=== PATIENT | female | born 1965 | race Native Hawaiian/Other Pacific Islander ===

== ENCOUNTER 2016-04-27 10:05 | Emergency (ER) | payer BC ==
[~2016-04-27] VITALS: Ht 177.8 cm; Wt 70.3 kg
[2016-04-27] MEDS ORDERED: KETO10TA34 PO (10:47)
== END 2016-04-27 10:50 | disposition home or self-care (01) ==
LOC: ED 10:05
DX: M77.11 Lateral epicondylitis, right elbow (principal)
CPT/HCPCS: 99282

== ENCOUNTER 2016-05-02 08:34 | Outpatient (CLI) | payer BC ==
[~2016-05-02 08:34] MED LIST: KETO10TA34 PO
== END 2016-05-02 19:36 | disposition home or self-care (01) ==
LOC: MAMMO 08:34
DX: Z12.31 Encounter for screening mammogram for malignant neoplasm of breast (principal)
CPT/HCPCS: G0202-TC